=== PATIENT | male | born 1960 | race African-American/Black ===

== ENCOUNTER 2017-05-17 00:38 | Emergency (ER) | payer OTHER ==
[~2017-05-17] VITALS: Ht 167.6 cm; Wt 104.3 kg
[2017-05-17] MEDS ORDERED: ASPIR 8181 MG ORAL (00:43)
[2017-05-17] MEDS ORDERED: CARVEDILOL12.5 MG ORAL (00:43)
[2017-05-17] MEDS ORDERED: K-TAB10 MEQ PO (00:43)
[2017-05-17] MEDS ORDERED: LIPITOR80 MG ORAL (00:43)
[2017-05-17] MEDS ORDERED: FUROSEMIDE40 MG ORAL (00:43)
[2017-05-17] MEDS ORDERED: LISINOPRIL20 MG ORAL (00:43)
[2017-05-17 00:46] VITALS: BP 91/61
[2017-05-17] MEDS ORDERED: NS 250 ML IVPB ONE (01:15)
[2017-05-17] MEDS ORDERED: Surgicel 4in x 8in TOPIC ONE (01:30)
[2017-05-17 01:49] LABS: BASOPHILS % (AUTO) 1.5 % (0.0-2.0); EOSINOPHILS % (AUTO) 2.8 % (0.0-3.0); LYMPHOCYTES % (AUTO) 19.5 % (20.0-45.0); MEAN CORPUSCULAR HEMOGLOBIN 31.4 PG (27.0-31.0); MEAN CORPUSCULAR HGB CONC 32.6 G/DL (32.0-36.0); MEAN CORPUSCULAR VOLUME 96 FL (80-99); MONOCYTES % (AUTO) 10.5 % (1.0-10.0); NEUTROPHILS % (AUTO) 65.8 % (45.0-75.0); PLATELET COUNT 154 K/UL (150-450); RED BLOOD COUNT 4.11 M/UL (4.70-6.10); RED CELL DISTRIBUTION WIDTH 11.4 % (11.6-14.8); WHITE BLOOD COUNT 4.5 K/UL (4.8-10.8)
[2017-05-17 02:10] LABS: PROTHROMBIN TIME 10.2 SEC (9.30-11.50)
[2017-05-17 02:15] LABS: ALANINE AMINOTRANSFERASE 16 U/L (12-78); ALBUMIN/GLOBULIN RATIO 0.8 (1.0-2.7); ANION GAP 8 mmol/L (5-15); ASPARTATE AMINO TRANSFERASE 10 U/L (15-37); CALCIUM 9.2 MG/DL (8.5-10.1); CARBON DIOXIDE 27 MMOL/L (21-32); CHLORIDE 110 MMOL/L (98-107); CREATININE 1.3 MG/DL (0.55-1.30); GLOMERULAR FILTRATION RATE 56.9 mL/min (>60); POTASSIUM 4.1 MMOL/L (3.5-5.1); SODIUM 145 MMOL/L (136-145); TOTAL PROTEIN 6.9 G/DL (6.4-8.2)
[2017-05-17 02:26] VITALS: BP 102/60
--- NOTE | 2017-05-17 02:46 | Emergency Room Report ---
History of Present Illness General Chief Complaint: Lower Extremity Injury Source: Patient Present Illness HPI Patient 56-year-old male brought in by EMS after increased bleeding to his right lower extremities. The patient prior history of congestive heart failure. He had prior history of cardiac disease. The patient was noted to have a bleeding to his right leg from the medial calf which was sprayed sideways. He reported moderate blood loss. He denies any chest pain or shortness of breath. Patient said he felt somewhat dizzy. He denies any recent trauma Allergies: Coded Allergies: No Known Allergies (Unverified , 05/17/17) Patient History Past Medical History: see triage record Reviewed Nursing Documentation: PMH: Agreed, PSxH: Agreed Nursing Documentation-PMH Hx Cardiac Problems: Yes - CHF, cardiac arrest 2 year ago Hx Hypertension: Yes Review of Systems All Other Systems: negative except mentioned in HPI Physical Exam Vital Signs Date Time Temp Pulse Resp B/P (MAP) Pulse Ox O2 Delivery O2 Flow Rate FiO2 05/17/17 00:33 98.2 83 14 130/84 99 Room Air Sp02 EP Interpretation: reviewed, normal General Appearance: normal inspection, well appearing, no apparent distress, alert Head: atraumatic ENT: normal ENT inspection, hearing grossly normal, normal voice Neck: normal inspection, full range of motion, supple, no bony tend Respiratory: normal inspection, lungs clear, normal breath sounds, no respiratory distress, no retraction, no wheezing Cardiovascular #1: regular rate, rhythm, no edema Gastrointestinal: normal inspection, normal bowel sounds, non tender, soft, no guarding, no hernia Genitourinary: no CVA tenderness Musculoskeletal: normal inspection, back normal, normal range of motion Neurologic: normal inspection, alert, responsive, speech normal Psychiatric: normal inspection, judgement/insight normal, mood/affect normal Skin: normal inspection, no rash, other - small punctate area to right leg without active bleedign Medical Decision Making Diagnostic Impression: Primary Impression: Bleeding from varicose vein ER Course Patient presented for lower extremity bleeding. Differential diagnosis included but was not limited to fracture, contusion, renal stone, vascular insufficiency, aortic aneurysm, cellulitis.Because of complexity of patient's case laboratory testing and imaging studies were ordered. The patient was noted to be briefly hypotensive. This is likely do to volume depletion. Patient started on IV fluids. Surgicel was applied to the patient' s area wound. The patient is advised to follow up with primary care doctor in 1-2 days. Patient is advised to return if any worsening condition or if any changes in status that are concerning. The patient is advised to return if she began bleeding is advised to hold direct pressure and to elevate his leg Last Vital Signs Date Time Temp Pulse Resp B/P (MAP) Pulse Ox O2 Delivery O2 Flow Rate FiO2 05/17/17 02:26 70 20 102/60 97 Room Air 05/17/17 00:46 98.2 Status: improved Disposition: HOME, SELF-CARE Condition: Stable Departure Forms: Return to Work Return to Work in (Days): 3 Other Restrictions: keep feet up several times a day for 2 weeks Patient Instructions: Bleeding Varicose Veins Abisai Ponce May 17, 2017 02:46
== END 2017-05-17 02:26 | disposition home or self-care (01) ==
LOC: EDBD 00:38 → EMR 00:54
DX: I83.891 Varicose veins of right lower extremity with other complications (principal); I10 Essential (primary) hypertension; I50.9 Heart failure, unspecified
CPT/HCPCS: 36415; 80053; 85025; 85610; 85730; 96360; 99284